=== PATIENT | female | born 1940 | race Caucasian/White ===

== ENCOUNTER 2022-02-25 11:58 | Emergency (ER) | payer MEDICARE, OTHER | END 2022-02-25 14:51 | disposition home or self-care (01) | LOC: CSHERS 11:58 | DX: S70.01XA Contusion of right hip, initial encounter (principal); S40.011A Contusion of right shoulder, initial encounter; I10 Essential (primary) hypertension; K21.9 Gastro-esophageal reflux disease without esophagitis; E78.5 Hyperlipidemia, unspecified; W05.0XXA Fall from non-moving wheelchair, initial encounter ==

== ENCOUNTER 2022-04-24 10:02 | Outpatient (CLI) | payer MEDICARE, OTHER | END 2022-04-24 10:03 | disposition home or self-care (01) | LOC: CSHMAMMO 10:02 | PROVIDERS: ATTEND Physician Assistant | DX: Z12.31 Encounter for screening mammogram for malignant neoplasm of breast (principal) | CPT/HCPCS: 77063; 77067 ==

== ENCOUNTER 2023-10-12 11:47 | Outpatient (CLI) | payer MEDICARE, OTHER | END 2023-10-12 11:48 | disposition home or self-care (01) | LOC: CSHULT 11:47 | PROVIDERS: ATTEND Physician Assistant | DX: R22.41 Localized swelling, mass and lump, right lower limb (principal); R10.31 Right lower quadrant pain; M47.816 Spondylosis without myelopathy or radiculopathy, lumbar region | CPT/HCPCS: 72100; 76999 ==

== ENCOUNTER 2024-10-11 11:04 | Outpatient (CLI) | payer MEDICARE, OTHER | END 2024-10-11 11:05 | disposition home or self-care (01) | LOC: CSHRAD 11:04 | PROVIDERS: ATTEND Internal Medicine Rheumatology | DX: M25.541 Pain in joints of right hand (principal); M25.542 Pain in joints of left hand; M19.041 Primary osteoarthritis, right hand; M19.031 Primary osteoarthritis, right wrist; M15.4 Erosive (osteo)arthritis ==

== ENCOUNTER 2024-12-18 12:22 | Outpatient (CLI) | payer MEDICARE, OTHER | END 2024-12-18 12:23 | disposition home or self-care (01) | LOC: CSHMAMMO 12:22 | PROVIDERS: ATTEND Physician Assistant | DX: Z12.31 Encounter for screening mammogram for malignant neoplasm of breast (principal); Z91.89 Other specified personal risk factors, not elsewhere classified | CPT/HCPCS: 77063; 77067 ==

== ENCOUNTER 2025-01-12 10:28 | Outpatient (CLI) | payer MEDICARE, OTHER | END 2025-01-12 10:29 | disposition home or self-care (01) | LOC: CSHCT 10:28 | PROVIDERS: ATTEND Urology | DX: N32.81 Overactive bladder (principal); N39.46 Mixed incontinence; N20.0 Calculus of kidney | CPT/HCPCS: 74176 ==